=== PATIENT | female | born 2005 | race Caucasian/White ===

== ENCOUNTER → 2025-06-24 | Outpatient (REF) | payer OTHER ==
[2025-06-24 15:40] LABS: CHOLESTEROL LEVEL 235.0 MG/DL (<200); CHOLESTEROL RISK RATIO 2.75 (<5); LDL CHOLESTEROL 136.1 MG/DL (<100); NON-HDL-C 149.7 MG/DL; TRIGLYCERIDES LEVEL 68.0 MG/DL (<150)
[2025-06-24 15:59] LABS: ESTIMATED AVERAGE GLUCOSE 97.0 MG/DL (60-110)
== END ==
LOC: M LAB REF 14:40
PROVIDERS: ATTEND Nurse Practitioner Family
DX: E66.3 Overweight (principal)

== ENCOUNTER → 2025-07-06 | Outpatient (REF) | payer OTHER | LOC: M PLALAB 14:23 | PROVIDERS: ATTEND Advanced Practice Midwife | DX: Z34.01 Encounter for supervision of normal first pregnancy, first trimester (principal); Z53.9 Procedure and treatment not carried out, unspecified reason ==

== ENCOUNTER → 2025-07-06 | Outpatient (CLI) | payer OTHER ==
[2025-07-06 17:36] LABS: PLATELET COUNT, AUTOMATED 273 10^3/uL (150-450)
[2025-07-06 17:43] LABS: HIV 1&2 SCREEN NEGATIVE (NEGATIVE)
[2025-07-06 17:51] LABS: HEPATITIS C VIRUS ABY INDEX < 0.02 INDEX (<0.8)
[2025-07-06 18:19] LABS: Trichomonas vaginalis (AMP) NOT DETECTED (NEGATIVE)
[2025-07-06 18:43] LABS: GC DNA AMPLIFICATION NEGATIVE (NEGATIVE)
== END ==
LOC: M PLALAB 14:38
PROVIDERS: ATTEND Advanced Practice Midwife
DX: Z34.01 Encounter for supervision of normal first pregnancy, first trimester (principal)

== ENCOUNTER → 2025-08-03 | Outpatient (REF) | payer OTHER | LOC: M LAB REF 16:14 | PROVIDERS: ATTEND Nurse Practitioner Family | DX: L98.9 Disorder of the skin and subcutaneous tissue, unspecified (principal) ==